=== PATIENT | male | born 1965 | race Caucasian/White ===

== ENCOUNTER 2019-10-26 08:26 | Inpatient (IN) ==
[2019-10-26 08:48] LABS: BASOPHILS % (AUTO) 0.4 % (0.2-1.0); EOSINOPHILS % (AUTO) 0.2 % (0.9-2.9); HEMATOCRIT 51.1 % (42.0-54.0); HEMOGLOBIN 17.4 g/dL (13.5-18.0); LYMPHOCYTES # (AUTO) 0.7 X10^3/uL (1.3-2.9); LYMPHOCYTES % (AUTO) 7.5 % (21.0-51.0); MEAN CORPUSCULAR HEMOGLOBIN 29.8 pg (27.0-34.0); MEAN CORPUSCULAR HGB CONC 34.1 g/dL (33.0-35.0); MEAN CORPUSCULAR VOLUME 87.5 fL (80.0-100.0); MEAN PLATELET VOLUME 6.8 fL (7.4-11.0); MONOCYTES # (AUTO) 0.8 x10^3/uL (0.3-0.8); MONOCYTES % (AUTO) 7.7 % (0.0-13.0); NEUTROPHILS # (AUTO) 8.2 x10^3/uL (2.2-4.8); NEUTROPHILS % (AUTO) 84.2 % (42.0-75.0); PLATELET COUNT 233 X10^3/uL (150.0-450.0); RED BLOOD COUNT 5.84 X10^6/uL (4.7-6.0); RED CELL DISTRIBUTION WIDTH 16.5 % (11.6-16.5); WHITE BLOOD COUNT 9.8 X10^3/uL (3.6-10.0)
[2019-10-26] MEDS ORDERED: ASPIRIN PO ONE (08:55)
[2019-10-26] MEDS ORDERED: NITROSTAT SL PRN (08:55)
[2019-10-26] MEDS ORDERED: NS 1000 ML 1,000 ML IV ONE (08:56)
[2019-10-26] MEDS ORDERED: ASPIRIN ONE (08:57)
[2019-10-26] MEDS ORDERED: NS 1000 ML 1,000 ML ONE (08:57)
[2019-10-26] MEDS ORDERED: NITROSTAT ONE (08:57)
--- NOTE | 2019-10-26 09:01 | DR.CP ---
HPI Time Seen Time Seen by Provider: 10/26/19 08:56 PCP Primary Care Physician: natividad velasquez HPI Comment HPI Comment: Chest pain since last night, intermittent 10 mins at a time, crushing, non-radiating. Also, fever and back pain for 3 days, associated with nausea and diarrhea. PMH of kidney stones, HTN, ankylosing spondylitis. Had chest pain 1.5 years ago, had angiography that was negative, no cardiac testing since. Patient works on a farm, at a truck stop. Complaint Chief Complaint:: PT C/O INTERMITTANT MID SUB-STERNAL CP THAT STARTED A FEW DAYS AGO ( TIGHNESS TO NIPPLE AREA) PT C/O FEVER OF 103.0 AT HOME ) PT STATES HE HAS BLOOD IN HIS URINE AND HE THOUGHT THAT IS WHERE FEVER WAS FROM.. Self Treatment fo Chief Complaint: PT TAKES ASA THIS AM ,BR COVID-19 Coronavirus risk:travel/contact w/high risk person: No Has patient experienced Coronavirus symptoms: Yes Coronavirus symptoms experienced: Fever Source History Provided: Patient Mode of Arrival Mode of Arrival: Ambulatory Timing Onset of Chief Complaint: 10/24/19 Location Chest Pain Radiation Location: None Associated Signs and Symptoms Associated Signs and Symptoms: None PMH PMH Past Medical History: Yes Past Medical History: Dyslipidemia and Hypertension Past Surgical History: No Family History History of Family Medical Conditions: No Family Medical History: Diabetes Mellitus and Hypertension Social History Does patient currently use any type of tobacco product: Yes Have you used tobacco products in the last 12 months: Yes Type of Tobacco Use: Cigarettes Does any household member use tobacco: No Alcohol Use: None Do you use any recreational Drugs:: No Lives With: Family Lives Where: Home Travel Risk Coronavirus risk:travel/contact w/high risk person: No Has patient experienced Coronavirus symptoms: Yes Coronavirus symptoms experienced: Fever Infectious screening In the last 2 months have you had wt loss of >10#?: NO Have you had fever, night sweats or hemotysis?: No Have you traveled outside the country in the last 6 months?: No Isolation: Droplet ROS Review of Systems Constitutional: See HPI Eyes: No Symptoms Reported ENTM: No Symptoms Reported Respiratoy: No Symptoms Reported; negative Productive Cough, Non-Productive Cough, Moist Cough, Dry Cough, Hacking Cough, Barking Cough, Brassy Cough and Short of Breath Cardiovascular: See HPI Gastrointestinal/Abdominal: See HPI Genitourinary: See HPI Neurological: No Symptoms Reported Musculoskeletal: No Symptoms Reported Integumentary: No Symptoms Reported Hematologic/Lymphatic: No Symptoms Reported Endocrine: No Symptoms Reported Psychiatric: No Symptoms Reported All Other Systems: Reviewed and Negative PE Vitals Vitals: Temperature 100.2 F Pulse Rate 80 Respiratory Rate 28 Blood Pressure [Left Arm] 139/87 Blood Pressure 136/82 O2 Sat by Pulse Oximetry 97 General Limitations: No Limitations General Appearance: Alert and In No Apparent Distress Head Head Exam: Normal Inspection Eyes Eye exam: Normal Appearance ENT ENT Exam: Normal Exam Chest Chest Inspection: Normal Inspection and Symmetric Chest Wall Rise Respiratory Respiratory Exam: Normal Lung Sounds Bilat; negative Accessory Muscle Use, Prolonged Expiratory Phase and Respiratory Distress Cardiovascular Cardiovascular Exam: Normal Rhythm and Tachycardia; negative Systolic Murmur and Diastolic Murmur Pulse: Normal Edema: Normal Abdominal Exam Abdominal Exam: Normal Inspection, Normal Bowel Sounds, Soft and Tenderness Abdominal Tenderness: LLQ (On deep palpation) and Epigastrium Extremities Extremities Exam: Normal Inspection and Normal Capillary Refill; negative Edema Back Back Exam: Normal Inspection, (R) CVA Tenderness and (L) CVA Tenderness Neurologic Neurological Exam: Alert, Oriented X3 and CN II-XII Intact Psychiatric Psychiatric Exam: Normal Affect and Normal Mood Skin Skin Exam: Warm, Dry, Intact and Normal Color COURSE Treatment Treatment: Chest pain resolved spontaneously on arrival. EKG with nonspecific possibly ischemic changes including T wave inversions (i.e. lead III) and ST depression in I. Initial troponin negative. Chest xray with opacities in bilateral lower lobes, read as possible chronic changes by radiologist. Meets SIRS criteria, blood cultures drawn, empiric Rocephin 1gm given. Lactate not elevated. Hypokalemic, and hypomagnesemic, Magnesium/ potassium replacement started. Crea 1.46 concerning for DAVID, FeNA/ FeUrea pending, rehydration started. CTAP showed diffuse nephroliths, non-obstructive, UA with hematuria. Started alpha ana. Dr. Mccoy accepted the patient for admission. Reevaluation 1st: Improved ROR Labs Reviewed Laboratory Results Reviewed?: Yes Result Diagrams: 10/26/19 08:34 10/26/19 08:34 Laboratory: WBC 9.8 X10^3/uL (3.6-10.0) 10/26/19 08:34 RBC 5.84 X10^6/uL (4.7-6.0) 10/26/19 08:34 Hgb 17.4 g/dL (13.5-18.0) 10/26/19 08:34 Hct 51.1 % (42.0-54.0) 10/26/19 08:34 MCV 87.5 fL (80.0-100.0) 10/26/19 08:34 MCH 29.8 pg (27.0-34.0) 10/26/19 08:34 MCHC 34.1 g/dL (33.0-35.0) 10/26/19 08:34 RDW 16.5 % (11.6-16.5) 10/26/19 08:34 Plt Count 233 X10^3/uL (150.0-450.0) 10/26/19 08:34 MPV 6.8 fL (7.4-11.0) L 10/26/19 08:34 Neut % (Auto) 84.2 % (42.0-75.0) H 10/26/19 08:34 Lymph % (Auto) 7.5 % (21.0-51.0) L 10/26/19 08:34 [place] % (Auto) 7.7 % (0.0-13.0) 10/26/19 08:34 Eos % (Auto) 0.2 % (0.9-2.9) L 10/26/19 08:34 Baso % (Auto) 0.4 % (0.2-1.0) 10/26/19 08:34 Neut # (Auto) 8.2 x10^3/uL (2.2-4.8) H 10/26/19 08:34 Lymph # (Auto) 0.7 X10^3/uL (1.3-2.9) L 10/26/19 08:34 [place] # (Auto) 0.8 x10^3/uL (0.3-0.8) 10/26/19 08:34 Eos # (Auto) 0.0 x10^3/uL (0.0-0.2) 10/26/19 08:34 Baso # (Auto) 0.0 X10^3/uL (0.0-0.1) 10/26/19 08:34 Absolute Nucleated RBC 0.0 /100WBC 10/26/19 08:34 PT 13.6 SECONDS (11.8-14.3) 10/26/19 08:34 INR Target Range - 10/26/19 08:34 INR 1.07 (0.8-1.3) 10/26/19 08:34 APTT 37.9 SECONDS (22.9-36.5) H 10/26/19 08:34 PTT Comment - 10/26/19 08:34 Sodium 134 mmol/L (136-145) L 10/26/19 08:34 Corrected Sodium 135 mmol/L (136-145) L 10/26/19 08:34 Potassium 2.5 mmol/L (3.5-5.1) L* 10/26/19 08:34 Chloride 98 mmol/L (98-107) 10/26/19 08:34 Carbon Dioxide 26.2 mmol/L (21-32) 10/26/19 08:34 BUN 12 mg/dL (7-18) 10/26/19 08:34 Creatinine 1.46 mg/dL (0.70-1.30) H 10/26/19 08:34 Est GFR (MDRD) Af Amer > 60 (>60) 10/26/19 08:34 Est GFR (MDRD) Non-Af 54 (>60) L 10/26/19 08:34 Glucose 133 mg/dL (65-99) H 10/26/19 08:34 Lactic Acid 0.8 mmol/L (0.4-2.0) 10/26/19 09:16 Calcium 8.3 mg/dL (8.5-10.1) L 10/26/19 08:34 Corrected Calcium 8.9 mg/dL (8.5-10.1) 10/26/19 08:34 Magnesium 1.3 mg/dL (1.7-2.9) L 10/26/19 08:34 Ferritin 214 ng/mL (26-388) 10/26/19 08:34 Total Bilirubin 0.40 mg/dL (0.2-1.0) 10/26/19 08:34 AST 23 Units/L (15-37) 10/26/19 08:34 ALT 17 Units/L (12-78) 10/26/19 08:34 Alkaline Phosphatase 81 Units/L (46-116) 10/26/19 08:34 Creatine Kinase 76 Units/L (39-308) 10/26/19 08:34 CK-MB (CK-2) < 1.0 ng/mL (0-4.0) 10/26/19 08:34 CK/CKMB % Calc 1.3 % (<4) 10/26/19 08:34 Troponin I < 0.02 ng/mL (0-1.5) 10/26/19 08:34 C-Reactive Protein 153.70 mg/L (0-3.0) H 10/26/19 08:34 Total Protein 7.6 g/dL (6.4-8.2) 10/26/19 08:34 Albumin 3.2 g/dL (3.4-5.0) L 10/26/19 08:34 Globulin 4.4 g/dL (2.5-4.5) 10/26/19 08:34 Albumin/Globulin Ratio 0.7 Ratio (1.1-2.1) L 10/26/19 08:34 Specimen Type Clean catch urine 10/26/19 10:05 Urine Color [place] (YELLOW) 10/26/19 10:05 Urine Appearance Slightly hazy (CLEAR) 10/26/19 10:05 Urine pH 6.5 (5.0 - 8.0) 10/26/19 10:05 Ur Specific [place] 1.010 (1.000-1.030) 10/26/19 10:05 Urine Protein 3+ (NEGATIVE) 10/26/19 10:05 Urine Glucose (UA) 1+ (NEGATIVE) 10/26/19 10:05 Urine Ketones Negative (NEGATIVE) 10/26/19 10:05 Urine Occult Blood 4+ (NEGATIVE) 10/26/19 10:05 Urine Nitrite Positive (NEGATIVE) 10/26/19 10:05 Urine Bilirubin 2+ (NEGATIVE) 10/26/19 10:05 Urine Urobilinogen 2+ (NORMAL) 10/26/19 10:05 Ur Leukocyte Esterase 1+ (NEGATIVE) 10/26/19 10:05 Urine RBC 10-20 /HPF (0-3) A 10/26/19 10:05 Urine WBC 3-5 /HPF (0-5) 10/26/19 10:05 Ur Squamous Epith Cells Few /HPF (NEGATIVE) 10/26/19 10:05 Amorphous Sediment 2+ /HPF (NEGATIVE) 10/26/19 10:05 Urine Bacteria Trace /HPF (NEGATIVE) 10/26/19 10:05 Granular Casts Few /LPF (NEGATIVE) 10/26/19 10:05 Ur Culture Indicated? Yes/culture set up 10/26/19 10:05 Ur Random Sodium 84 mmol/L (40-220) 10/26/19 10:05 Influenza Type A Ag Negative-presumptive (NEGATIVE) 10/26/19 09:11 Influenza Type B Ag Negative-presumptive (NEGATIVE) 10/26/19 09:11 Mycoplasma pneumon IgG Negative (NEGATIVE) 10/26/19 08:34 SARS-CoV-2 (PCR) Negative (NEGATIVE) 10/26/19 09:40 XRAY XRAY Interpreted by: Both X-ray Results: Bilateral basal opacities EKG Rate: 100 [place]: Normal Rhythm: ST Block: None Hypertrophy: None ST: Nonsp (isolated ST depression in lead I, with T-wave inversion in III, may be concerning for myocardial ischemia) Opioid Opioid Risk Tool Age (Azar box if 16-45): No History of Preadolescent Sexual Abuse: No Total: 0 Total Score Risk Category: Low Risk Copyright: Ramy PLUMMER predicting aberrant behaviors Diagnosis Discharge Problem: Chest pain, rule out acute myocardial infarction, Hypomagnesemia, Hypokalemia, Bilateral nephrolithiasis Sepsis Qualifiers: Sepsis type: sepsis due to unspecified organism Sepsis acute organ dysfunction status: unspecified Qualified Code(s): A41.9 - Sepsis, unspecified organism Urinary tract infection Qualifiers: Urinary tract infection type: site unspecified Hematuria presence: with hematuria Qualified Code(s): N39.0 - Urinary tract infection, site not specified
[2019-10-26 09:09] LABS: ALANINE AMINOTRANSFERASE 17 Units/L (12-78); ALBUMIN 3.2 g/dL (3.4-5.0); ALKALINE PHOSPHATASE 81 Units/L (46-116); ASPARTATE AMINO TRANSFERASE 23 Units/L (15-37); BLOOD UREA NITROGEN 12 mg/dL (7-18); CALCIUM 8.3 mg/dL (8.5-10.1); CARBON DIOXIDE 26.2 mmol/L (21-32); CHLORIDE 98 mmol/L (98-107); CKMB % 1.3 % (<4); COR CA(FOR HYPOALB) 8.9 mg/dL (8.5-10.1); COR NA(FOR HYPERGLY) 135 mmol/L (136-145); CREATINE KINASE 76 Units/L (39-308); CREATINE KINASE MB < 1.0 ng/mL (0-4.0); CREATININE 1.46 mg/dL (0.70-1.30); MAGNESIUM 1.3 mg/dL (1.7-2.9); SODIUM 134 mmol/L (136-145); TOTAL PROTEIN 7.6 g/dL (6.4-8.2); TROPONIN I < 0.02 ng/mL (0-1.5); eGFR NON BLACK RACES 54 (>60)
--- NOTE | 2019-10-26 09:18 | RAD ---
HISTORYCHEST PAIN, FEVERSTUDYCHEST, 1 [id number] is mild cardiomegaly. There is poor inspiratory. There is mild uncoiling of the aortic arch with enlargement of the central vessels. There is no pneumothorax or large pleural effusions. There are some patchy radiopacities at the bases. No alveolar radiopacitiesIMPRESSIONCentral congestion without robert pulmonary edema. Poor inspiratory effort. Patchy bibasal radiopacities probably chronic changesElectronically signed by: Felicia Chaves (Oct 26, 2019 09:16:56)
[2019-10-26] MEDS ORDERED: KLOR-CON PO ONE (09:27)
[2019-10-26] MEDS ORDERED: MAGNESIUM SULFATE 50% INJ VIAL IM ONE (09:29)
[2019-10-26] MEDS ORDERED: MAGNESIUM SULFATE 1 GRAM/100 mL PREMIX 1 G/100 ML BAG IV ONE ×2 (09:30→10:01)
[2019-10-26] MEDS: MAGNESIUM SULFATE 1 GRAM/100 mL PREMIX 2 G/200 ML BAG IV SCH ×2 (09:32→10:01)
[2019-10-26] MEDS ORDERED: KLOR-CON ONE (09:42)
[2019-10-26] MEDS ORDERED: ROCEPHIN VIAL 1 GRAM 1 G in NS 100 ML IV + SPIKE MINIBAG* 100 ML IV ONE (10:05)
[2019-10-26 10:16] LABS: BILIRUBIN,URINE 2+ (NEGATIVE); BLOOD/HEMOGLOBIN,URINE 4+ (NEGATIVE); GLUCOSE, URINE 1+ (NEGATIVE); KETONES,URINE NEGATIVE (NEGATIVE); LEUKOCYTE ESTERASE ,URINE 1+ (NEGATIVE); NITRITES,URINE POSITIVE (NEGATIVE); PH,URINE 6.5 (5.0 - 8.0); PROTEIN,URINE 3+ (NEGATIVE); UROBILINOGEN,URINE 2+ (NORMAL)
[2019-10-26 10:18] LABS: SODIUM,URINE 84 mmol/L (40-220)
[2019-10-26] MEDS ORDERED: NS 100 ML IV + SPIKE MINIBAG* 100 ML IV ONE (10:22)
[2019-10-26] MEDS ORDERED: ROCEPHIN VIAL 1 GRAM ONE (10:22)
[2019-10-26 10:25] LABS: APPEARANCE,URINE SLIGHTLY HAZY (CLEAR); COLOR,URINE ORANGE (YELLOW)
[2019-10-26 10:26] LABS: AMORPHOUS SEDIMENT,UR 2+ /HPF (NEGATIVE); BACTERIA,URINE TRACE /HPF (NEGATIVE); GRANULAR CASTS,URINE FEW /LPF (NEGATIVE); SQUAMOUS EPITHELIAL CELL,UR FEW /HPF (NEGATIVE)
[2019-10-26 10:35] LABS: MYCOPLASMA PNEUMONIAE IGM AB NEGATIVE (NEGATIVE)
[2019-10-26] MEDS ORDERED: NS + KCL 20 MEQ/L 500 ML IV SCH (11:00)
--- NOTE | 2019-10-26 11:32 | CT ---
HISTORYhx nephrolithiasis, fever and b/l CVA tendernessSTUDYCT ABDOMEN/PELVIS without IV contrastCOMPARISONNoneTECHNIQUEMultiple axial images of the abdomen and pelvis were obtained from the lung bases to the pubic symphysis without the administration of IV contrast. Dose reduction techniques including Automated Exposure Control (AEC) and adjustment of mA and kV were utilized.FINDINGSThe visualized portions of the lung bases suggest probable mild atelectasis in the right middle lobe and left lingula. There is increased subpleural fat deposition, also.Mild hepatomegaly and splenomegaly.Small gallstone is seen near the neck of the gallbladder. No evidence of cholecystitis. No biliary ductal dilation.No pancreatic abnormality is seen.The adrenal glands appear normal.4.8 cm probable benign cyst in the superior pole of the right kidney. Prominent bilateral nephrolithiasis. Stones appears small measuring up to 5 millimeters in size. No hydronephrosis. No ureteral stones. There is a left-sided bladder diverticulum that measures 3.3 cm in greatest axial dimension. No bladder wall thickening is seen.Diffuse colonic wall thickening from the rectum to the cecum consistent with colitis. Ulcerative colitis should be given consideration along with infectious colitis. No evidence of small-bowel obstruction. Normal appendix is seen.No abnormalities are seen of the reproductive organs.Abdominal aorta is normal in size.No suspicious lymphadenopathy.No free intraperitoneal air or fluid is seen.No acute bony abnormality is seen.Small right inguinal hernia is seen containing fat.IMPRESSIONDiffuse colitis could be from ulcerative colitis or infectious etiology.Prominent bilateral nephrolithiasis without ureteral stone or hydronephrosis.Small gallstone is seen without evidence of cholecystitis.Electronically signed by: Guero Glasgow (Oct 26, 2019 11:31:42)
[2019-10-26] MEDS ORDERED: LR 1000 ML IV 1,000 ML IV ONE (12:48)
[2019-10-26] MEDS ORDERED: ADALIMUMAB 40 MG SUBCUT SCH (13:18)
[2019-10-26] MEDS ORDERED: MAGNESIUM SULFATE 50% INJ VIAL IV ONE (13:18)
[2019-10-26 13:45] VITALS: BMI 26.6
[2019-10-26] MEDS ORDERED: NS 100 ML IV 100 ML IV ONE (13:45)
[2019-10-26] MEDS: LR 1000 ML IV 1,000 ML IV SCH (13:55)
[2019-10-26 14:24] LABS: CKMB % 1.3 % (<4); CREATINE KINASE 79 Units/L (39-308); CREATINE KINASE MB < 1.0 ng/mL (0-4.0); TROPONIN I < 0.02 ng/mL (0-1.5)
[2019-10-26] MEDS ORDERED: POTASSIUM CHL 40 MEQ/NS 0.45% 500 ML IV PRN (14:36)
[2019-10-26] MEDS ORDERED: POTASSIUM CHLORIDE LIQ 20 MEQ UDC PO PRN (14:36)
[2019-10-26] MEDS ORDERED: POTASSIUM CHL 60 MEQ/NS 0.45% 500 ML IV PRN (14:36)
[2019-10-26] MEDS ORDERED: MICRO K EXTEN CAP 10 MEQ PO PRN (14:36)
[2019-10-26] MEDS ORDERED: K-RIDER 10 MEQ/NS 100 ML 10 MEQ/100 ML BAG IV PRN (14:36)
[2019-10-26] MEDS: K-DUR TAB 20 MEQ PO PRN (14:49)
[2019-10-26] MEDS ORDERED: K-RIDER 10 MEQ/NS 100 ML 10 MEQ/100 ML BAG IV SCH (15:00)
[2019-10-26] MEDS: FLOMAX PO SCH (20:47)
[2019-10-26] MEDS: CRESTOR TAB 10 MG PO SCH (20:47)
[2019-10-26 20:58] LABS: CKMB % 1.3 % (<4); CREATINE KINASE 77 Units/L (39-308); CREATINE KINASE MB < 1.0 ng/mL (0-4.0); TROPONIN I < 0.02 ng/mL (0-1.5)
[2019-10-27] MEDS: LR 1000 ML IV 1,000 ML IV SCH ×4 (01:43→21:03)
[2019-10-27 06:23] LABS: BASOPHILS # (AUTO) 0.1 X10^3/uL (0.0-0.1); BASOPHILS % (AUTO) 0.7 % (0.2-1.0); EOSINOPHILS # (AUTO) 0.3 x10^3/uL (0.0-0.2); EOSINOPHILS % (AUTO) 4.1 % (0.9-2.9); HEMATOCRIT 47.1 % (42.0-54.0); HEMOGLOBIN 15.8 g/dL (13.5-18.0); LYMPHOCYTES # (AUTO) 1.3 X10^3/uL (1.3-2.9); LYMPHOCYTES % (AUTO) 17.1 % (21.0-51.0); MEAN CORPUSCULAR HEMOGLOBIN 29.8 pg (27.0-34.0); MEAN CORPUSCULAR HGB CONC 33.5 g/dL (33.0-35.0); MEAN CORPUSCULAR VOLUME 88.9 fL (80.0-100.0); MEAN PLATELET VOLUME 7.5 fL (7.4-11.0); MONOCYTES # (AUTO) 1.2 x10^3/uL (0.3-0.8); MONOCYTES % (AUTO) 15.4 % (0.0-13.0); NEUTROPHILS # (AUTO) 4.7 x10^3/uL (2.2-4.8); NEUTROPHILS % (AUTO) 62.7 % (42.0-75.0); PLATELET COUNT 222 X10^3/uL (150.0-450.0); RED CELL DISTRIBUTION WIDTH 16.2 % (11.6-16.5); WHITE BLOOD COUNT 7.5 X10^3/uL (3.6-10.0)
[2019-10-27 06:25] LABS: ALANINE AMINOTRANSFERASE 18 Units/L (12-78); ALBUMIN 2.9 g/dL (3.4-5.0); ALKALINE PHOSPHATASE 89 Units/L (46-116); ASPARTATE AMINO TRANSFERASE 25 Units/L (15-37); BLOOD UREA NITROGEN 14 mg/dL (7-18); CALCIUM 8.3 mg/dL (8.5-10.1); CARBON DIOXIDE 28.4 mmol/L (21-32); CHLORIDE 103 mmol/L (98-107); COR CA(FOR HYPOALB) 9.2 mg/dL (8.5-10.1); CREATININE 1.19 mg/dL (0.70-1.30); MAGNESIUM 1.8 mg/dL (1.7-2.9); SODIUM 138 mmol/L (136-145); TOTAL PROTEIN 7.1 g/dL (6.4-8.2); eGFR NON BLACK RACES > 60 (>60)
[2019-10-27] MEDS: MAGNESIUM SULFATE 1 GRAM/100 mL PREMIX 1 GM/100 ML BAG IV PRN ×2 (08:54→12:27)
[2019-10-27] MEDS: KLOR-CON PO PRN (08:55)
[2019-10-27] MEDS ORDERED: NS 100 ML IV + SPIKE MINIBAG* 100 ML IV ONE (09:54)
[2019-10-27] MEDS: ROCEPHIN VIAL 1 GRAM IV SCH (10:05)
--- NOTE | 2019-10-27 11:26 | DR.H&P ---
H&P - History & Physical for Day of: H&P Date: 10/27/19 - Chief Complaint Chief Complaint: CHEST PAIN, FEVER, LOWER BACK PAIN - History of Present Illness History of Present Illness: IS A 54 YEAR OLD PATIENT OF BANDAR NOBLE. HE PRESENTED TO THE ER WITH REPORTS OF INTERMITTENT CHEST PAIN, FEVER, AND LOWER BACK PAIN. CHEST PAIN STARTED APPROXIMATELY TWO DAYS AGO. PAIN IS DESCRIBED TIGHTNESS AND IS RATED 5/10. BACK PAIN IS DULL AND IS RATED 6/10. PATIENT STATES THAT HE HAS HAD BLOOD IN HIS URINE AND THINKS THAT HE HAS PASSED A KIDNEY STONE. ASSOCIATED SYMPTOMS INCLUDE NAUSEA AND DIARRHEA. HIS PAST MEDICAL HISTORY INCLDES: HTN, DYSLIPIDEMIA, KIDNEY STONES, ANKYLOSING SPONDYLITIS. ON ARRIVAL TO THE ER, VITALS WERE 100.7-540-18-100%-130/68. LABS WERE OBTAINED. ABNORMAL LAB VALUES INCLUDE THE FOLLOWING: PTT 37.9, SODIUM 134, POTASSIUM 2.5, CREATININE 1.46, GLUCOSE 133, CALCIUM 8.3, MAGNESIUM 1.3, CRP 153.70, ALBUMIN 3.2. CARDIAC ENZYMES WERE WITHIN NORMAL LIMITS. A URINALYSIS WAS OBTAINED AND REVEALED: WBC 3-5, RBC 10-20, LEUKOCYTES 1+, BACTERIA TRACE, NITRITES POSITIVE. INFLUENZA AND COVID-19 NEGATIVE. BLOOD AND URINE CULTURES WERE SET UP. A CHEST XRAY WAS OBTAINED AND REVEALED: Central congestion without robert pulmonary edema. Poor inspiratory effort. Patchy bibasal radiopacities probably chronic changes. EKG REVEALED: SINUS TACHYCARDIA WITH HR 100. AN ABDOMEN/PELVIS CT WITHOUT CONTRAST WAS OBTAINED AND REVEALED: Diffuse colitis could be from ulcerative colitis or infectious etiology. Prominent bilateral nephrolithiasis without ureteral stone or hydronephrosis. Small gallstone is seen without evidence of cholecystitis. HE WAS GIVEN A NORMAL SALINE BOLUS, ECOTRIN 325MG PO X 1, KLOR-CLON 40MG PO BID, ROCEPHIN 1G IV DAILY, MAGNESIUM SULFATE 2G IV X 1 DOSE IN THE ER. HE WAS ADMITTED FOR FURTHER EVALUATION AND TREATMENT OF CHEST PAIN RULE OUT ACUTE ME, HYPOKALEMIA, HYPOMAGNESEMIA, NEPHROLITHIASIS, UTI, AND COLITIS. HE WAS STARTED ON LR AT 80 ML/HR, THE POTASSIUM AND MAGNESIUM PROTOCOL, ROCEPHIN 1G IV DAILY, FLOMAX 0.4MG PO HS, SOLU-MEDROL 40MG IV Q8H. WE WILL REVIEW HIS HOME MEDICATIONS. OTHERWISE, WE WILL FOLLOW UP WITH AM LABS AND CONTINUE TO MONITOR. - Past Medical History Past Medical History: Hypertension, Dyslipidemia - Past Surgical History Surgical History: Ortho Surgery, Other - Family History Family Medical History: Coronary Artery Disease - Social History Does patient currently use any type of tobacco product: Yes Have you used tobacco products in the last 12 months: Yes Type of Tobacco Use: Cigarettes How many years tobacco product used: 40 Does any household member use tobacco: No Alcohol Use: None - Medications Home Medications: No Known Drug Allergies Allergy (Verified 10/26/19 08:34) CONTINUE taking the following medications adalimumab [Humira Pen] 40 mg SUBCUT Q2W 10/26/19 [History] lisinopril-hydrochlorothiazide [Zestoretic] 1 tab PO BID 10/26/19 [History] rosuvastatin 5 mg PO HS 10/26/19 [History] - Review of Systems Constitutional: Fever, Chills Eyes: No Symptoms Reported ENT: No Symptoms Reported Respiratory: No Symptoms Reported Cardiovascular: No Symptoms Reported Gastrointestinal: Nausea, Diarrhea Genitourinary: No Symptoms Reported Musculoskeletal: Back Pain Skin: No Symptoms Reported Neurological: No Symptoms Reported - Physical Exam Vital Signs: Temperature 98.0 F Pulse Rate [Right] 65 Pulse Rate 80 Respiratory Rate 22 Blood Pressure [Right Arm] 124/69 Blood Pressure [Left Arm] 134/78 Blood Pressure 136/82 O2 Sat by Pulse Oximetry 97 Oriented: Normal Eyes: Normal Ear: Normal Nose: Normal Throat: Normal Respiratory: Diminished Throughout Cardiovascular: Tachycardia : Normal Auscultation: Bowel Sounds: Normal Palpation: Normal Tenderness: Diffuse, Mild Skin: Normal Musculoskeletal: Back:Lumbar, Tender Psychiatric: Normal Mood Description: Calm Affect: Normal Speech Pattern: Clear - Allergies Allergies/Adverse Reactions: Allergies Allergy/AdvReac Type Severity Reaction Status Date / Time No Known Drug Allergies Allergy Verified 10/26/19 08:34
[2019-10-27] MEDS: SOLU-Medrol 40 MG VIAL IVP SCH ×3 (12:27→21:03)
[2019-10-27 18:16] LABS: CRYPTOSPORIDIUM PARVUM ANTIGEN NEGATIVE (NEGATIVE); GIARDIA LAMBLIA ANTIGEN NEGATIVE (NEGATIVE)
[2019-10-27] MEDS: FLOMAX PO SCH (21:02)
[2019-10-27] MEDS: CRESTOR TAB 10 MG PO SCH (21:02)
[2019-10-28] MEDS: SOLU-Medrol 40 MG VIAL IVP SCH ×3 (05:21→21:03)
[2019-10-28] MEDS: LR 1000 ML IV 1,000 ML IV SCH ×4 (05:21→21:40)
[2019-10-28 05:23] LABS: BASOPHILS % (AUTO) 0.1 % (0.2-1.0); EOSINOPHILS % (AUTO) 0.1 % (0.9-2.9); HEMOGLOBIN 15.2 g/dL (13.5-18.0); LYMPHOCYTES # (AUTO) 0.8 X10^3/uL (1.3-2.9); LYMPHOCYTES % (AUTO) 12.5 % (21.0-51.0); MEAN CORPUSCULAR HEMOGLOBIN 29.4 pg (27.0-34.0); MEAN PLATELET VOLUME 7.4 fL (7.4-11.0); MONOCYTES # (AUTO) 0.2 x10^3/uL (0.3-0.8); MONOCYTES % (AUTO) 2.7 % (0.0-13.0); NEUTROPHILS # (AUTO) 5.3 x10^3/uL (2.2-4.8); NEUTROPHILS % (AUTO) 84.6 % (42.0-75.0); PLATELET COUNT 251 X10^3/uL (150.0-450.0); RED BLOOD COUNT 5.17 X10^6/uL (4.7-6.0); RED CELL DISTRIBUTION WIDTH 16.5 % (11.6-16.5); WHITE BLOOD COUNT 6.2 X10^3/uL (3.6-10.0)
[2019-10-28 05:32] LABS: ALANINE AMINOTRANSFERASE 20 Units/L (12-78); ALBUMIN 2.8 g/dL (3.4-5.0); ALKALINE PHOSPHATASE 91 Units/L (46-116); ASPARTATE AMINO TRANSFERASE 23 Units/L (15-37); BLOOD UREA NITROGEN 11 mg/dL (7-18); CALCIUM 8.4 mg/dL (8.5-10.1); CARBON DIOXIDE 23.5 mmol/L (21-32); CHLORIDE 104 mmol/L (98-107); COR CA(FOR HYPOALB) 9.4 mg/dL (8.5-10.1); COR NA(FOR HYPERGLY) 139 mmol/L (136-145); CREATININE 1.07 mg/dL (0.70-1.30); SODIUM 138 mmol/L (136-145); TOTAL PROTEIN 6.9 g/dL (6.4-8.2); eGFR NON BLACK RACES > 60 (>60)
[2019-10-28] MEDS: KLOR-CON PO PRN (06:19)
[2019-10-28] MEDS: ROCEPHIN VIAL 1 GRAM IV SCH (09:07)
[2019-10-28] MEDS: MAGNESIUM SULFATE 1 GRAM/100 mL PREMIX 1 GM/100 ML BAG IV PRN ×2 (10:13→11:15)
--- NOTE | 2019-10-28 11:28 | PCM.PROG ---
Progress Note Progress Note for Day of Date of Exam: 10/28/19 Subjective Subjective: Patient seen at bedside, reports doing well. He was admitted with dehydration due to nausea, vomiting and diarrhea. He states diarrhea has slowed down, starting to form. He has been tolerating oral intake. CTAP did show diffuse colitis due to ulcerative colitis or infectious cause, b/l nephr olithiasis. He is currently on Rocephin and solumedrol. Labs: M.6 K:3.2 Cr: 1.07 Trop x 3 (-) FOBT (+) Urine and stool Cx neg Plan: continue IVF, Rocephin and solumedrol. Follow cultures, replace K and Mag as per protocol, monitor AM labs. Resume home medications. Past Medical Family Social History Past Med/Fam/Surg Hx: No changes since H&P Allergies: Allergies No Known Drug Allergies Allergy (Verified 10/26/19 08:34) Review of Systems ROS: No change since H&P Vital Signs and I&O's Vital Signs: Temperature 98.6 F Pulse Rate [Left Brachial] 74 Pulse Rate [Right] 62 Pulse Rate 80 Respiratory Rate 20 Blood Pressure [Right Arm] 124/69 Blood Pressure [Left Arm] 138/73 Blood Pressure 136/82 O2 Sat by Pulse Oximetry 96 Intake and Output: Intake & Output 10/25/19 10/26/19 10/27/19 10/28/19 23:59 23:59 23:59 23:59 Intake Total 600 / 600 2640 / 2640 480 / 480 Balance 600 / 600 2640 / 2640 480 / 480 Physical Exam Oriented: Normal Eyes: Normal Ear: Normal Nose: Normal Throat: Normal Respiratory: Normal Cardiovascular: Normal Auscultation: Bowel Sounds: Normal Tenderness: Normal Skin: Normal Musculoskeletal: Back:Lumbar and Tender Psychiatric: Normal Mood Description: Calm Affect: Normal Speech Pattern: Clear and Appropriate Laboratory and Diagnostics Result Diagrams: 10/28/19 04:25 10/28/19 09:13 Labs: 10/26/19 10:05 Urine,Clean Catch Urine Culture - Final 10/27/19 17:00 Stool Stool Culture - Preliminary 10/27/19 17:00 Stool - Final 10/26/19 09:19 Blood Blood Culture - Preliminary 10/26/19 09:16 Blood Blood Culture - Preliminary Laboratory WBC 6.2 X10^3/uL (3.6-10.0) 10/28/19 04:25 RBC 5.17 X10^6/uL (4.7-6.0) 10/28/19 04:25 Hgb 15.2 g/dL (13.5-18.0) 10/28/19 04:25 Hct 46.0 % (42.0-54.0) 10/28/19 04:25 MCV 89.0 fL (80.0-100.0) 10/28/19 04:25 MCH 29.4 pg (27.0-34.0) 10/28/19 04:25 MCHC 33.0 g/dL (33.0-35.0) 10/28/19 04:25 RDW 16.5 % (11.6-16.5) 10/28/19 04:25 Plt Count 251 X10^3/uL (150.0-450.0) 10/28/19 04:25 MPV 7.4 fL (7.4-11.0) 10/28/19 04:25 Neut % (Auto) 84.6 % (42.0-75.0) H 10/28/19 04:25 Lymph % (Auto) 12.5 % (21.0-51.0) L 10/28/19 04:25 [place] % (Auto) 2.7 % (0.0-13.0) 10/28/19 04:25 Eos % (Auto) 0.1 % (0.9-2.9) L 10/28/19 04:25 Baso % (Auto) 0.1 % (0.2-1.0) L 10/28/19 04:25 Neut # (Auto) 5.3 x10^3/uL (2.2-4.8) H 10/28/19 04:25 Lymph # (Auto) 0.8 X10^3/uL (1.3-2.9) L 10/28/19 04:25 [place] # (Auto) 0.2 x10^3/uL (0.3-0.8) L 10/28/19 04:25 Eos # (Auto) 0.0 x10^3/uL (0.0-0.2) 10/28/19 04:25 Baso # (Auto) 0.0 X10^3/uL (0.0-0.1) 10/28/19 04:25 Absolute Nucleated RBC 0.1 /100WBC 10/28/19 04:25 PT 13.6 SECONDS (11.8-14.3) 10/26/19 08:34 INR Target Range - 10/26/19 08:34 INR 1.07 (0.8-1.3) 10/26/19 08:34 APTT 37.9 SECONDS (22.9-36.5) H 10/26/19 08:34 PTT Comment - 10/26/19 08:34 Sodium 138 mmol/L (136-145) 10/28/19 04:25 Corrected Sodium 139 mmol/L (136-145) 10/28/19 04:25 Potassium 4.0 mmol/L (3.5-5.1) 10/28/19 09:13 Chloride 104 mmol/L (98-107) 10/28/19 04:25 Carbon Dioxide 23.5 mmol/L (21-32) 10/28/19 04:25 BUN 11 mg/dL (7-18) 10/28/19 04:25 Creatinine 1.07 mg/dL (0.70-1.30) 10/28/19 04:25 Est GFR (MDRD) Af Amer > 60 (>60) 10/28/19 04:25 Est GFR (MDRD) Non-Af > 60 (>60) 10/28/19 04:25 Glucose 159 mg/dL (65-99) H 10/28/19 04:25 Lactic Acid 0.8 mmol/L (0.4-2.0) 10/26/19 09:16 Calcium 8.4 mg/dL (8.5-10.1) L 10/28/19 04:25 Corrected Calcium 9.4 mg/dL (8.5-10.1) 10/28/19 04:25 Magnesium 1.6 mg/dL (1.7-2.9) L 10/28/19 04:25 Ferritin 214 ng/mL (26-388) 10/26/19 08:34 Total Bilirubin 0.10 mg/dL (0.2-1.0) L 10/28/19 04:25 AST 23 Units/L (15-37) 10/28/19 04:25 ALT 20 Units/L (12-78) 10/28/19 04:25 Alkaline Phosphatase 91 Units/L (46-116) 10/28/19 04:25 Creatine Kinase 77 Units/L (39-308) 10/26/19 20:13 CK-MB (CK-2) < 1.0 ng/mL (0-4.0) 10/26/19 20:13 CK/CKMB % Calc 1.3 % (<4) 10/26/19 20:13 Troponin I < 0.02 ng/mL (0-1.5) 10/26/19 20:13 C-Reactive Protein 40.40 mg/L (0-3.0) H 10/28/19 04:25 Total Protein 6.9 g/dL (6.4-8.2) 10/28/19 04:25 Albumin 2.8 g/dL (3.4-5.0) L 10/28/19 04:25 Globulin 4.1 g/dL (2.5-4.5) 10/28/19 04:25 Albumin/Globulin Ratio 0.7 Ratio (1.1-2.1) L 10/28/19 04:25 Specimen Type Clean catch urine 10/26/19 10:05 Urine Color [place] (YELLOW) 10/26/19 10:05 Urine Appearance Slightly hazy (CLEAR) 10/26/19 10:05 Urine pH 6.5 (5.0 - 8.0) 10/26/19 10:05 Ur Specific [place] 1.010 (1.000-1.030) 10/26/19 10:05 Urine Protein 3+ (NEGATIVE) 10/26/19 10:05 Urine Glucose (UA) 1+ (NEGATIVE) 10/26/19 10:05 Urine Ketones Negative (NEGATIVE) 10/26/19 10:05 Urine Occult Blood 4+ (NEGATIVE) 10/26/19 10:05 Urine Nitrite Positive (NEGATIVE) 10/26/19 10:05 Urine Bilirubin 2+ (NEGATIVE) 10/26/19 10:05 Urine Urobilinogen 2+ (NORMAL) 10/26/19 10:05 Ur Leukocyte Esterase 1+ (NEGATIVE) 10/26/19 10:05 Urine RBC 10-20 /HPF (0-3) A 10/26/19 10:05 Urine WBC 3-5 /HPF (0-5) 10/26/19 10:05 Ur Squamous Epith Cells Few /HPF (NEGATIVE) 10/26/19 10:05 Amorphous Sediment 2+ /HPF (NEGATIVE) 10/26/19 10:05 Urine Bacteria Trace /HPF (NEGATIVE) 10/26/19 10:05 Granular Casts Few /LPF (NEGATIVE) 10/26/19 10:05 Ur Culture Indicated? Yes/culture set up 10/26/19 10:05 Ur Random Sodium 84 mmol/L (40-220) 10/26/19 10:05 Urine Creatinine 180.95 mg/dL (40-278) 10/26/19 10:05 Stool Description 75 grs brown loose 10/27/19 17:00 Stool Description 75 grs brown loose 10/27/19 17:00 Stl Occult Blood (IFOB) Positive (NEGATIVE) A 10/27/19 17:00 Cryptosporid parvum Ag Negative (NEGATIVE) 10/27/19 17:00 Giardia lamblia Ag Negative (NEGATIVE) 10/27/19 17:00 Influenza Type A Ag Negative-presumptive (NEGATIVE) 10/26/19 09:11 Influenza Type B Ag Negative-presumptive (NEGATIVE) 10/26/19 09:11 Mycoplasma pneumon IgG Negative (NEGATIVE) 10/26/19 08:34 SARS-CoV-2 (PCR) Negative (NEGATIVE) 10/26/19 09:40
[2019-10-28] MEDS: ULTRAM PO SCH ×2 (11:45→20:24)
[2019-10-28] MEDS ORDERED: MAALOX or MYLANTA PO PRN (19:51)
[2019-10-28] MEDS: CRESTOR TAB 10 MG PO SCH (20:24)
[2019-10-28] MEDS: FLOMAX PO SCH (20:25)
[2019-10-29] MEDS: LR 1000 ML IV 1,000 ML IV SCH ×3 (03:30→13:39)
[2019-10-29 05:27] LABS: BASOPHILS % (AUTO) 0.1 % (0.2-1.0); HEMOGLOBIN 14.2 g/dL (13.5-18.0); LYMPHOCYTES % (AUTO) 8.7 % (21.0-51.0); MEAN CORPUSCULAR HGB CONC 32.9 g/dL (33.0-35.0); MEAN CORPUSCULAR VOLUME 88.1 fL (80.0-100.0); MEAN PLATELET VOLUME 7.4 fL (7.4-11.0); MONOCYTES # (AUTO) 0.4 x10^3/uL (0.3-0.8); MONOCYTES % (AUTO) 3.3 % (0.0-13.0); NEUTROPHILS # (AUTO) 10.2 x10^3/uL (2.2-4.8); NEUTROPHILS % (AUTO) 87.9 % (42.0-75.0); PLATELET COUNT 300 X10^3/uL (150.0-450.0); RED BLOOD COUNT 4.89 X10^6/uL (4.7-6.0); RED CELL DISTRIBUTION WIDTH 16.4 % (11.6-16.5); WHITE BLOOD COUNT 11.6 X10^3/uL (3.6-10.0)
[2019-10-29 05:46] LABS: ALANINE AMINOTRANSFERASE 35 Units/L (12-78); ALBUMIN 2.7 g/dL (3.4-5.0); ALKALINE PHOSPHATASE 90 Units/L (46-116); ASPARTATE AMINO TRANSFERASE 37 Units/L (15-37); BLOOD UREA NITROGEN 15 mg/dL (7-18); CALCIUM 8.3 mg/dL (8.5-10.1); CARBON DIOXIDE 25.8 mmol/L (21-32); CHLORIDE 105 mmol/L (98-107); COR CA(FOR HYPOALB) 9.3 mg/dL (8.5-10.1); COR NA(FOR HYPERGLY) 140 mmol/L (136-145); CREATININE 1.09 mg/dL (0.70-1.30); MAGNESIUM 1.6 mg/dL (1.7-2.9); SODIUM 139 mmol/L (136-145); TOTAL PROTEIN 6.4 g/dL (6.4-8.2); eGFR NON BLACK RACES > 60 (>60)
[2019-10-29] MEDS: SOLU-Medrol 40 MG VIAL IVP SCH (06:02)
[2019-10-29] MEDS: MAGNESIUM SULFATE 1 GRAM/100 mL PREMIX 1 GM/100 ML BAG IV PRN ×2 (06:36→08:32)
[2019-10-29] MEDS ORDERED: VISTARIL PO PRN (08:03)
[2019-10-29] MEDS ORDERED: VISTARIL PO ONE (08:13)
[2019-10-29] MEDS: ULTRAM PO SCH (08:25)
[2019-10-29] MEDS: ROCEPHIN VIAL 1 GRAM IV SCH (08:25)
[2019-10-29] MEDS: K-DUR TAB 20 MEQ PO PRN (08:32)
[2019-10-29] MEDS ORDERED: PREDNISONE TAB 20 MG PO SCH (10:00)
[2019-10-29] MEDS ORDERED: K-DUR TAB 20 MEQ PO ONE (10:42)
[2019-10-29] MEDS ORDERED: PEPCID TAB 20 MG PO SCH (10:45)
--- NOTE | 2019-10-29 10:49 | W.DIS.FURT ---
Summary of Discharge Admission Diagnosis Patient Problems (Updated 10/26/19 @ 13:12 by Fidelina Bridges) Chest pain, rule out acute myocardial infarction (Acute) R07.9 Hypomagnesemia (Acute) E83.42 Hypokalemia (Acute) E87.6 Sepsis (Acute) A41.9 Bilateral nephrolithiasis (Acute) N20.0 Urinary tract infection (Acute) N39.0 Vital Signs: Vital Signs (72 hours) 10/26/19 11:00 10/26/19 11:15 10/26/19 11:30 Temperature Pulse Rate 88 80 80 Pulse Rate [Left Brachial] Pulse Rate [Right] Respiratory Rate 24 26 H Blood Pressure [Left Arm] Blood Pressure [Right Arm] O2 Sat by Pulse Oximetry 96 98 95 10/26/19 11:45 10/26/19 12:00 10/26/19 12:15 Temperature Pulse Rate 79 80 81 Pulse Rate [Left Brachial] Pulse Rate [Right] Respiratory Rate 24 26 H 25 H Blood Pressure [Left Arm] Blood Pressure [Right Arm] O2 Sat by Pulse Oximetry 97 97 98 10/26/19 12:30 10/26/19 13:38 10/26/19 15:58 Temperature 98.2 F 99.0 F Pulse Rate 80 Pulse Rate [Left Brachial] Pulse Rate [Right] 91 H 80 Respiratory Rate 28 H 20 20 Blood Pressure [Left Arm] 119/66 Blood Pressure [Right Arm] 124/69 O2 Sat by Pulse Oximetry 97 99 96 10/26/19 20:00 10/27/19 00:00 10/27/19 04:00 Temperature 99.4 F 97.8 F 98.0 F Pulse Rate Pulse Rate [Left Brachial] Pulse Rate [Right] 79 72 65 Respiratory Rate 18 20 22 Blood Pressure [Left Arm] 141/76 126/73 134/78 Blood Pressure [Right Arm] O2 Sat by Pulse Oximetry 95 98 97 10/27/19 08:00 10/27/19 12:00 10/27/19 16:00 Temperature 98.4 F 98.6 F 98.0 F Pulse Rate Pulse Rate [Left Brachial] Pulse Rate [Right] 68 60 63 Respiratory Rate 18 20 18 Blood Pressure [Left Arm] 136/65 137/80 133/75 Blood Pressure [Right Arm] O2 Sat by Pulse Oximetry 93 L 97 96 10/27/19 20:00 10/28/19 00:00 10/28/19 04:00 Temperature 97.8 F 98.0 F 97.9 F Pulse Rate Pulse Rate [Left Brachial] Pulse Rate [Right] 63 54 L 62 Respiratory Rate 22 18 20 Blood Pressure [Left Arm] 135/77 128/70 120/74 Blood Pressure [Right Arm] O2 Sat by Pulse Oximetry 95 94 L 100 10/28/19 08:00 10/28/19 11:45 10/28/19 12:00 Temperature 98.6 F 97.6 F Pulse Rate Pulse Rate [Left Brachial] 74 54 L Pulse Rate [Right] Respiratory Rate 20 18 20 Blood Pressure [Left Arm] 138/73 125/74 Blood Pressure [Right Arm] O2 Sat by Pulse Oximetry 96 96 10/28/19 12:45 10/28/19 16:00 10/28/19 20:00 Temperature 97.8 F 98.2 F Pulse Rate Pulse Rate [Left Brachial] 62 73 Pulse Rate [Right] Respiratory Rate 18 18 20 Blood Pressure [Left Arm] 143/70 160/79 Blood Pressure [Right Arm] O2 Sat by Pulse Oximetry 97 97 10/28/19 20:24 10/28/19 21:24 10/29/19 00:00 Temperature 98.0 F Pulse Rate Pulse Rate [Left Brachial] 58 L Pulse Rate [Right] Respiratory Rate 16 20 20 Blood Pressure [Left Arm] 142/84 Blood Pressure [Right Arm] O2 Sat by Pulse Oximetry 93 L 10/29/19 04:00 10/29/19 08:00 10/29/19 08:25 Temperature 98.0 F 97.4 F L Pulse Rate Pulse Rate [Left Brachial] 64 58 L Pulse Rate [Right] Respiratory Rate 24 20 18 Blood Pressure [Left Arm] 137/75 134/75 Blood Pressure [Right Arm] O2 Sat by Pulse Oximetry 97 96 10/29/19 09:25 Temperature Pulse Rate Pulse Rate [Left Brachial] Pulse Rate [Right] Respiratory Rate 20 Blood Pressure [Left Arm] Blood Pressure [Right Arm] O2 Sat by Pulse Oximetry Labs: Laboratory Last Values WBC 11.6 X10^3/uL (3.6-10.0) H 10/29/19 04:15 RBC 4.89 X10^6/uL (4.7-6.0) 10/29/19 04:15 Hgb 14.2 g/dL (13.5-18.0) 10/29/19 04:15 Hct 43.0 % (42.0-54.0) 10/29/19 04:15 MCV 88.1 fL (80.0-100.0) 10/29/19 04:15 MCH 29.0 pg (27.0-34.0) 10/29/19 04:15 MCHC 32.9 g/dL (33.0-35.0) L 10/29/19 04:15 RDW 16.4 % (11.6-16.5) 10/29/19 04:15 Plt Count 300 X10^3/uL (150.0-450.0) 10/29/19 04:15 MPV 7.4 fL (7.4-11.0) 10/29/19 04:15 Neut % (Auto) 87.9 % (42.0-75.0) H 10/29/19 04:15 Lymph % (Auto) 8.7 % (21.0-51.0) L 10/29/19 04:15 [place] % (Auto) 3.3 % (0.0-13.0) 10/29/19 04:15 Eos % (Auto) 0.0 % (0.9-2.9) L 10/29/19 04:15 Baso % (Auto) 0.1 % (0.2-1.0) L 10/29/19 04:15 Neut # (Auto) 10.2 x10^3/uL (2.2-4.8) H 10/29/19 04:15 Lymph # (Auto) 1.0 X10^3/uL (1.3-2.9) L 10/29/19 04:15 [place] # (Auto) 0.4 x10^3/uL (0.3-0.8) 10/29/19 04:15 Eos # (Auto) 0.0 x10^3/uL (0.0-0.2) 10/29/19 04:15 Baso # (Auto) 0.0 X10^3/uL (0.0-0.1) 10/29/19 04:15 Absolute Nucleated RBC 0.0 /100WBC 10/29/19 04:15 PT 13.6 SECONDS (11.8-14.3) 10/26/19 08:34 INR Target Range - 10/26/19 08:34 INR 1.07 (0.8-1.3) 10/26/19 08:34 APTT 37.9 SECONDS (22.9-36.5) H 10/26/19 08:34 PTT Comment - 10/26/19 08:34 Sodium 139 mmol/L (136-145) 10/29/19 04:15 Corrected Sodium 140 mmol/L (136-145) 10/29/19 04:15 Potassium 3.4 mmol/L (3.5-5.1) L 10/29/19 04:15 Chloride 105 mmol/L (98-107) 10/29/19 04:15 Carbon Dioxide 25.8 mmol/L (21-32) 10/29/19 04:15 BUN 15 mg/dL (7-18) 10/29/19 04:15 Creatinine 1.09 mg/dL (0.70-1.30) 10/29/19 04:15 Est GFR (MDRD) Af Amer > 60 (>60) 10/29/19 04:15 Est GFR (MDRD) Non-Af > 60 (>60) 10/29/19 04:15 Glucose 132 mg/dL (65-99) H 10/29/19 04:15 Lactic Acid 0.8 mmol/L (0.4-2.0) 10/26/19 09:16 Calcium 8.3 mg/dL (8.5-10.1) L 10/29/19 04:15 Corrected Calcium 9.3 mg/dL (8.5-10.1) 10/29/19 04:15 Magnesium 1.6 mg/dL (1.7-2.9) L 10/29/19 04:15 Ferritin 214 ng/mL (26-388) 10/26/19 08:34 Total Bilirubin 0.10 mg/dL (0.2-1.0) L 10/29/19 04:15 AST 37 Units/L (15-37) 10/29/19 04:15 ALT 35 Units/L (12-78) 10/29/19 04:15 Alkaline Phosphatase 90 Units/L (46-116) 10/29/19 04:15 Creatine Kinase 77 Units/L (39-308) 10/26/19 20:13 CK-MB (CK-2) < 1.0 ng/mL (0-4.0) 10/26/19 20:13 CK/CKMB % Calc 1.3 % (<4) 10/26/19 20:13 Troponin I < 0.02 ng/mL (0-1.5) 10/26/19 20:13 C-Reactive Protein 18.70 mg/L (0-3.0) H 10/29/19 04:15 Total Protein 6.4 g/dL (6.4-8.2) 10/29/19 04:15 Albumin 2.7 g/dL (3.4-5.0) L 10/29/19 04:15 Globulin 3.7 g/dL (2.5-4.5) 10/29/19 04:15 Albumin/Globulin Ratio 0.7 Ratio (1.1-2.1) L 10/29/19 04:15 Specimen Type Clean catch urine 10/26/19 10:05 Urine Color Rich (YELLOW) 10/26/19 10:05 Urine Appearance Slightly hazy (CLEAR) 10/26/19 10:05 Urine pH 6.5 (5.0 - 8.0) 10/26/19 10:05 Ur Specific [place] 1.010 (1.000-1.030) 10/26/19 10:05 Urine Protein 3+ (NEGATIVE) 10/26/19 10:05 Urine Glucose (UA) 1+ (NEGATIVE) 10/26/19 10:05 Urine Ketones Negative (NEGATIVE) 10/26/19 10:05 Urine Occult Blood 4+ (NEGATIVE) 10/26/19 10:05 Urine Nitrite Positive (NEGATIVE) 10/26/19 10:05 Urine Bilirubin 2+ (NEGATIVE) 10/26/19 10:05 Urine Urobilinogen 2+ (NORMAL) 10/26/19 10:05 Ur Leukocyte Esterase 1+ (NEGATIVE) 10/26/19 10:05 Urine RBC 10-20 /HPF (0-3) A 10/26/19 10:05 Urine WBC 3-5 /HPF (0-5) 10/26/19 10:05 Ur Squamous Epith Cells Few /HPF (NEGATIVE) 10/26/19 10:05 Amorphous Sediment 2+ /HPF (NEGATIVE) 10/26/19 10:05 Urine Bacteria Trace /HPF (NEGATIVE) 10/26/19 10:05 Granular Casts Few /LPF (NEGATIVE) 10/26/19 10:05 Ur Culture Indicated? Yes/culture set up 10/26/19 10:05 Ur Random Sodium 84 mmol/L (40-220) 10/26/19 10:05 Urine Creatinine 180.95 mg/dL (40-278) 10/26/19 10:05 Stool Description 75 grs brown loose 10/27/19 17:00 Stool Description 75 grs brown loose 10/27/19 17:00 Stl Occult Blood (IFOB) Positive (NEGATIVE) A 10/27/19 17:00 Cryptosporid parvum Ag Negative (NEGATIVE) 10/27/19 17:00 Giardia lamblia Ag Negative (NEGATIVE) 10/27/19 17:00 Influenza Type A Ag Negative-presumptive (NEGATIVE) 10/26/19 09:11 Influenza Type B Ag Negative-presumptive (NEGATIVE) 10/26/19 09:11 Mycoplasma pneumon IgG Negative (NEGATIVE) 10/26/19 08:34 SARS-CoV-2 (PCR) Negative (NEGATIVE) 10/26/19 09:40 Reason For Visit: CHEST PAIN R/O AMI,SEPSIS,HYPOKALEMIA,HYPOMAGNESEM Discharge Diagnosis All Active Problems (Updated 10/26/19 @ 13:12 by Fidelina Bridges) Chest pain, rule out acute myocardial infarction (Acute) Hypomagnesemia (Acute) Hypokalemia (Acute) Sepsis (Acute) Bilateral nephrolithiasis (Acute) Urinary tract infection (Acute) 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 Pt is to keep follow up appointment as instructed and take medications as ordered. Discharge Medications Discharge Medications: No Known Drug Allergies Allergy (Verified 10/26/19 08:34) CONTINUE taking the following medications adalimumab [Humira Pen] 40 mg SUBCUT Q2W 10/26/19 [History] lisinopril-hydrochlorothiazide [Zestoretic] 1 tab PO BID 10/26/19 [History] rosuvastatin 5 mg PO HS 10/26/19 [History] New Prescriptions ciprofloxacin HCl 500 mg PO BID 5 Days #10 tab 10/29/19 [Rx] famotidine 20 mg PO DAILY 30 Days #30 tab 10/29/19 [Rx] loperamide 2 mg PO Q8H PRN #14 cap 10/29/19 [Rx] ondansetron 4 mg PO Q8H PRN #14 tab 10/29/19 [Rx] prednisone See Rx Instructions .ROUTE .COMPLEX #21 ea 10/29/19 [Rx] tamsulosin 0.4 mg PO QPM 30 Days #30 cap 10/29/19 [Rx]
[2019-10-29 12:08] VITALS: BP 133/71
== END 2019-10-29 14:10 | disposition home or self-care (01) | DRG 872 ==
LOC: ER 08:26 → MED/SURG 12:52
PROVIDERS: ADMIT Internal Medicine; ATTEND Internal Medicine
DX: E86.0 Dehydration; E78.2 Mixed hyperlipidemia; R19.7 Diarrhea, unspecified; I10 Essential (primary) hypertension; R07.89 Other chest pain; A41.89 Other specified sepsis; E83.42 Hypomagnesemia; N20.0 Calculus of kidney; E87.6 Hypokalemia; Z11.59 Encounter for screening for other viral diseases; N39.0 Urinary tract infection, site not specified; K51.80 Other ulcerative colitis without complications
CPT/HCPCS: 36415; 71010; 71045; 74176; 80053; 81001; 82270; 82550; 82553; 82570; 82728; 83605; 83735; 84132; 84300; 84484; 85025; 85610; 85730; 86140; 86738; 87040; 87045; 87086; 87328; 87329; 87400; 87427; 87449; 87635; 87804; 87899; 93005; 96365; 96374; 96375; 99284; A4222; J0696; J2920; J3475; J7030; J7050; J7120; J7512; Q0177